=== PATIENT | male | born 1930 | race Caucasian/White ===

== ENCOUNTER 2019-02-19 15:27 | Outpatient (CLI) | payer MEDICARE, OTHER ==
--- NOTE | 2019-02-21 13:11 | XRAY Report ---
Reason: BILATERAL FINGER AND WRIST INFLAMMATION Procedure Date: 02/19/2019 Accession Number: [id number] / [id number] Procedure: XRN - Hand 3 View BILAT CPT Code: FULL RESULT: EXAMS: 1. RIGHT HAND RADIOGRAPHY 2. LEFT HAND RADIOGRAPHY EXAM DATE: 02/19/2019 04:10 PM. CLINICAL HISTORY: Bilateral finger and wrist inflammation. Pain for 6 months. COMPARISON: None. TECHNIQUE: 3 views each hand. FINDINGS: Right: Bones: No acute fracture or bony lesion. Mild periarticular erosions along the third and fourth DIP joints. No periosteal reaction. Joints: Joint space narrowing and degenerative osteophyte formation involving the DIP and PIP and metacarpophalangeal joints and first carpometacarpal joint. No dislocation. Soft Tissues: Soft tissue edema. Left: Bones: No acute fracture or bony lesion. Central erosive changes are seen involving the left fifth DIP joint. Possibly periarticular erosions along the left second and third DIP joints. Joints: Joint space narrowing and degenerative changes of the DIP and PIP and metacarpophalangeal joints and left first carpometacarpal joint. No dislocation. Soft Tissues: Soft tissue edema. IMPRESSION: 1. Periarticular erosions involving the second and third left and third and fourth DIP joints which may represent changes related to inflammatory arthropathy. 2. 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 3. Degenerative changes of the right and left hand. 4. Soft tissue edema. [facility]
--- NOTE | 2019-02-21 13:12 | XRAY Report ---
Reason: BILATERAL FINGER AND WRIST INFLAMMATION Procedure Date: 02/19/2019 Accession Number: [id number] / [id number] Procedure: XRN - Wrist 4 View BILAT CPT Code: FULL RESULT: EXAMS: 1. RIGHT WRIST RADIOGRAPHY 2. LEFT WRIST RADIOGRAPHY EXAM DATE: 02/19/2019 04:10 PM. CLINICAL HISTORY: Bilateral finger and wrist inflammation. Pain for 6 months. COMPARISON: None. TECHNIQUE: 4 views each wrist. FINDINGS: Right: Bones: No acute fracture or bony lesion. Degenerative osteophyte formation. No bony erosions. Joints: Joint space narrowing of the radiocarpal joint as well as intercarpal joints although largely involving the scaphotrapezoid and scaphotrapezium joint spaces and the distal radioulnar joint. There is TFCC calcification. Soft Tissues: Vascular calcifications. Mild edema. Left: Bones: No acute fracture or bony lesion. Degenerative osteophyte formation. Subchondral cyst in the hamate. No bony erosions. Joints: Joint space narrowing of the radiocarpal and as well as intercarpal joints although largely involving the scaphotrapezoid and scaphotrapezium and the distal radioulnar joint spaces. Soft Tissues: Mild edema. IMPRESSION: 1. Degenerative changes of the right and left wrist. 2. Right TFCC chondrocalcinosis. [facility]
== END 2019-02-19 15:28 | disposition home or self-care (01) ==
LOC: DI.N 15:27
PROVIDERS: ATTEND Internal Medicine
DX: M19.032 Primary osteoarthritis, left wrist (principal); M19.031 Primary osteoarthritis, right wrist; M18.0 Bilateral primary osteoarthritis of first carpometacarpal joints; M19.042 Primary osteoarthritis, left hand; M19.041 Primary osteoarthritis, right hand

== ENCOUNTER 2019-03-28 12:10 | Outpatient (CLI) | payer OTHER, MEDICARE | END 2019-03-29 12:11 | disposition EMS.NT | LOC: EMS 12:10 | PROVIDERS: ATTEND Surgery | DX: M79.632 Pain in left forearm (principal); M79.631 Pain in right forearm; V43.52XA Car driver injured in collision with other type car in traffic accident, initial encounter; W22.10XA Striking against or struck by unspecified automobile airbag, initial encounter; Y92.413 State road as the place of occurrence of the external cause ==